=== PATIENT | male | born 1940 | race Caucasian/White ===

== ENCOUNTER 2017-07-25 07:30 | Inpatient (IN) ==
[2017-07-22 15:52] LABS: Appearance,Urine CLEAR; Bacteria,Urine 0 /hpf (0); Bilirubin,Urine NEG (NEG); Calcium Oxalate Crystals,Urine MANY /hpf (0); Color,Urine YELLOW; Glucose,Urine (UA) NEGATIVE (NEG); Leukocyte Esterase,Urine 75 /uL (NEG); Mucus,Urine MOD /hpf (0); Protein,Urine 30 mg/dL (NEG); Specific Gravity,Urine 1.026 (1.000-1.035); Urine Blood NEG mg/dL (<0.03); Urine RBC 2 /hpf (0-1); Urine Squamous Epithelial Cell < 1 /hpf (0-4); Urine WBC 4 /hpf (0-4)
[2017-07-22 16:22] LABS: Blood Urea Nitrogen 13 mg/dl (8-23)
[2017-07-22 16:54] LABS: Basophils # (Auto) 0 K/mcL (0.0-0.3); Basophils % (Auto) 0.4 % (0.0-2.0); Eosinophils # (Auto) 0.1 K/mcL (0.0-0.7); Eosinophils % (Auto) 1.9 % (0.0-7.0); Granulocytes % (Auto) 53.3 % (38.0-78.0); Lymphocytes # (Auto) 2.3 K/mcL (1.5-4.8); Lymphocytes % (Auto) 36.1 % (15.5-49.0); Mean Cell Volume 91.7 fL (80.0-100.0); Mean Corpuscular HGB Conc 33.3 g/dL (31.0-36.0); Mean Corpuscular Hemoglobin 30.6 pg (26.0-34.0); Monocytes # (Auto) 0.5 K/mcL (0.1-0.9); Monocytes % (Auto) 8.3 % (1.0-12.0); Platelet Count 309 K/mcL (140-440); RBC 4.88 M/mcL (4.50-5.90); Red Cell Distribution Width 14.8 % (11.5-14.5)
[~2017-07-25 07:30] MED LIST: ACETAMINOPHEN 500 MG TABLET PO SCH; CELECOXIB 200 MG CAPSULE PO SCH; PREGABALIN 75 MG CAPSULE PO SCH; ceFAZolin 1 GM VIAL IV SCH; oxyCODONE 10 MG TAB.ER.12H PO SCH
[2017-07-25] MEDS ORDERED: KETOROLAC 30 MG, ROPIVACAINE HCL/PF 49.5 ML, EPINEPHrine 0.5 MG, 0.9 % SODIUM CHLORIDE ... IV SCH (12:43)
[2017-07-25] MEDS ORDERED: PHENYLEPHRINE 10 MG/ML VIAL ONE (13:05)
[2017-07-25] MEDS ORDERED: GLYCOPYRROLATE 0.2 MG/ML VIAL IV ONE (13:05)
[2017-07-25] MEDS ORDERED: MIDAZOLAM 2 MG/2 ML VIAL ONE (13:05)
[2017-07-25] MEDS ORDERED: KETAMINE 10 MG/ML ML ONE (13:05)
[2017-07-25] MEDS ORDERED: PROPOFOL 200 MG/20 ML VIAL IV ONE (13:05)
[2017-07-25] MEDS ORDERED: LIDOCAINE HCL/PF 100 MG/5 ML SYRINGE IV ONE (13:05)
[2017-07-25] MEDS ORDERED: ONDANSETRON 4 MG/2 ML VIAL ONE (13:05)
[2017-07-25] MEDS ORDERED: GENTAMICIN SULFATE 800 MG/20 ML VIAL IR ONE (13:50)
[2017-07-25] MEDS ORDERED: fentaNYL 100 MCG/2 ML VIAL IV PRN (14:24)
[2017-07-25] MEDS ORDERED: PROMETHAZINE 25 MG/ML VIAL IV PRN (14:24)
[2017-07-25] MEDS ORDERED: MEPERIDINE 25 MG/ML SYRINGE IV PRN (14:24)
[2017-07-25] MEDS ORDERED: IPRATROPIUM/ALBUTEROL 3 ML AMPUL.NEB NEB PRN (14:24)
[2017-07-25] MEDS ORDERED: METHOCARBAMOL 1,000 MG/10 ML VIAL IV PRN (14:24)
[2017-07-25] MEDS ORDERED: METOPROLOL TARTRATE 5 MG/5 ML VIAL IV PRN (14:24)
[2017-07-25] MEDS ORDERED: LACTATED RINGERS 1,000 ML IV SCH (14:30)
--- NOTE | 2017-07-25 14:34 | Brief Operative Note ---
Date of procedure: 07/25/17 Pre-op diagnosis: left hip djd severe Post-op diagnosis: same Procedure: left jimbo Grafts/Implants: Yes Anesthesia: МАРИЯA Surgeon: Joaquín Goss Recycling Manager: Parveen Burnette Estimated blood loss (cc): 100 Specimens Removed/Pathology: none sent Condition: stable Disposition: PACU
[2017-07-25] MEDS ORDERED: ACETAMINOPHEN 325 MG TABLET PO PRN (14:35)
[2017-07-25] MEDS ORDERED: BISACODYL 10 MG SUPP.RECT PR PRN (14:35)
[2017-07-25] MEDS ORDERED: MAGNESIUM HYDROXIDE 30 ML ORAL.SUSP PO PRN (14:35)
[2017-07-25] MEDS ORDERED: POLYETHYLENE GLYCOL 3350 17 GM PACKET PO PRN (14:35)
[2017-07-25] MEDS ORDERED: KETOROLAC 15 MG/ML VIAL IV PRN (14:35)
[2017-07-25] MEDS ORDERED: ONDANSETRON 4 MG/2 ML VIAL IV PRN (14:35)
[2017-07-25] MEDS ORDERED: FLEETS ADULT ENEMA PR PRN (14:35)
[2017-07-25] MEDS ORDERED: HYDROmorphone 2 MG/ML VIAL IV PRN (14:35)
[2017-07-25] MEDS ORDERED: BENZOCAINE/MENTHOL 1 LOZENGE PO PRN (14:35)
[2017-07-25] MEDS ORDERED: TEMAZEPAM 15 MG CAPSULE PO PRN (14:35)
[2017-07-25] MEDS ORDERED: TRANEXAMIC ACID 1,000 MG/10 ML VIAL IV ONE (14:35)
[2017-07-25] MEDS ORDERED: ALBUTEROL SULFATE 1 PUFF INHALER INH PRN (14:38)
[2017-07-25] MEDS: 0.45 % SODIUM CHLORIDE 1,000 ML IV SCH (15:58)
--- NOTE | 2017-07-25 16:03 | XRay Report ---
CLINICAL INFORMATION: Reason for Exam:Post-Op Total Hip COMPARISON: None. FINDINGS: Total hip prostheses is anatomically aligned. No osseous abnormality. Soft tissues are normal IMPRESSION: Negative Interpreted and Authenticated by: Seamus Christiansen 07/25/17
[2017-07-25] MEDS ORDERED: SENNOSIDES 1 TABLET PO SCH (21:00)
[2017-07-25] MEDS: DOCUSATE SODIUM 100 MG CAPSULE PO SCH (21:42)
[2017-07-25] MEDS: ceFAZolin 1 GM VIAL IV SCH (21:43)
[2017-07-25] MEDS: ASPIRIN 325 MG ENTERIC COATED TABLET PO SCH (21:43)
[2017-07-25] MEDS: 0.9 % SODIUM CHLORIDE 10 ML SYRINGE IV SCH (21:47)
[2017-07-25] MEDS: HYDROcodone/APAP 10/325MG TABLET PO PRN (22:10)
[2017-07-26] MEDS: 0.45 % SODIUM CHLORIDE 1,000 ML IV SCH (02:12)
[2017-07-26] MEDS: HYDROcodone/APAP 10/325MG TABLET PO PRN ×2 (03:02→08:24)
[2017-07-26] MEDS: ceFAZolin 1 GM VIAL IV SCH (05:29)
[2017-07-26] MEDS: 0.9 % SODIUM CHLORIDE 10 ML SYRINGE IV SCH (05:29)
[2017-07-26] MEDS: ASPIRIN 325 MG ENTERIC COATED TABLET PO SCH (08:24)
--- NOTE | 2017-07-26 08:24 | Orthopedic Progress Note ---
Subjective Patient information: Note initiated : 07/26/17 at 8:23 am Service Date, if different from initiated Date: [] Patient: Luis Murrieta 76 y/o M admitted on 07/25/17 for Left Total Hip Arthroplasty. Chief Complaint: Pt is stable this morning on post operative day 1 without any significant concerns or complaints. Patients vital signs have remained stable. Patients dressing is dry and is grossly instact from a neurovascular and motor standpoint. Patients 10 point ROS is otherwise negative. ] Objective Vital signs: Vital Signs Temp Pulse Pulse Resp BP BP Pulse Ox 07/26/17 07:13 98.3 F 18 152/64 95 07/26/17 04:00 98.3 F 60 18 117/64 95 07/26/17 00:22 98.5 F 64 14 115/58 94 07/26/17 00:00 94 07/25/17 22:06 62 14 93 07/25/17 20:32 97.5 F 73 14 130/72 94 07/25/17 20:00 94 07/25/17 18:00 95 07/25/17 16:54 146/88 93 07/25/17 16:27 168/87 96 07/25/17 16:13 153/85 95 07/25/17 16:00 99 07/25/17 15:57 179/83 99 07/25/17 15:42 153/92 99 07/25/17 15:27 158/91 98 07/25/17 15:11 98.2 F 85 15 125/58 99 07/25/17 14:56 97.4 F 56 L 16 133/82 98 07/25/17 14:51 61 133/82 07/25/17 14:46 97.3 F 65 10 L 126/70 97 07/25/17 14:41 97.3 F 72 10 L 151/73 97 07/25/17 10:25 97.4 F 59 L 20 151/91 97 07/25/17 09:42 98.4 F 18 160/89 97 Intake and Output 07/25/17 07/26/17 07/26/17 21:59 05:59 13:59 Intake Total 1590 / 1590 2400 / 2400 Output Total 800 / 800 Balance 1590 / 1590 1600 / 1600 Intake: IV 1000 / 1000 Sodium Chloride 0.45% 1,000 ml 1000 / 1000 @ 100 mls/hr IV .Q10H BHAVANA Rx#: [id number] Oral 590 / 590 1400 / 1400 IV - Manual Only 1000 / 1000 Output: Void Amount 800 / 800 Other: Meal Dinner Percent of Meal Consumed 100% Feeding Ability Independent Weight 220 lb Intake & Output: Intake & Output 07/25/17 07/26/17 07/26/17 21:59 05:59 13:59 Intake Total 1590 / 1590 2400 / 2400 Output Total 800 / 800 Balance 1590 / 1590 1600 / 1600 Weight 220 lb Intake: IV 1000 / 1000 Sodium Chloride 0.45% 1,000 ml 1000 / 1000 @ 100 mls/hr IV .Q10H BHAVANA Rx#: [id number] Oral 590 / 590 1400 / 1400 IV - Manual Only 1000 / 1000 Output: Void Amount 800 / 800 Other: Meal Dinner Percent of Meal Consumed 100% Feeding Ability Independent Incision: Yes healing Incision clean and dry: Yes Dressing: Yes clean Weight bearing status: full Neurological exam IM: Yes motor sensory intact, Yes neurovascular intact Extremities exam IM: Yes normal inspection, Yes Foot pink and warm, Yes neurovascular intact - Labs CBC & BMP: 07/26/17 05:28 07/22/17 13:51 Labs: Orthopedic Labs 07/22/17 13:52 APTT 27 07/26/17 07/22/17 05:28 13:52 Hgb 14.9 Hct 36.2 L 44.7 Assessment and Plan (1) Hx of total hip arthroplasty The patient has been educated regarding dressing care, Physical Therapy recommendations, home exercises, restrictions, and follow up appointments. The patient has had all necessary DME prescribed. The patient has remained relatively stable during their hospital course. I consulted with Dr Goss regarding her O2 concerns as well as if he wants a Hospitalist Consult for her. Leave Dermabond patch intact until followup Status: Acute
--- NOTE | 2017-07-26 08:26 | Discharge Summary ---
Ortho Discharge - POLI - Patient Instructions Diet: Regular Diet Activity: activity as tolerated, weight bearing as tolerated Total Hip Protocol: Follow activity instructions as provided by Physical Therapy. Dressing Care: May shower in 2 days - Problem Maintenance (1) Hx of total hip arthroplasty Status: Acute - Follow Up Plan Disposition: Home, Self-Care Prognosis: Good Rehab Potential: Good I certify that the patient requires SNF services: No Overall status at discharge: patient is progressing back to baseline - Orders For Discharge Prescriptions: Aspirin [Ecotrin] 325 mg PO BID #60 tab.ec Docusate Sodium [Colace] 100 mg PO BID #60 cap HYDROcodone/APAP 10/325MG [[place] 10-325Mg] 1 - 2 tab PO Q4HP PRN #75 tab PRN Reason: Pain Level 3-6
[2017-07-26] MEDS ORDERED: OMEPRAZOLE 20 MG CAPSULE PO SCH (09:00)
[2017-07-26] MEDS ORDERED: FLUoxetine HCL 20 MG CAPSULE PO SCH (09:00)
[2017-07-26] MEDS ORDERED: IBUPROFEN 800 MG TABLET PO SCH (09:00)
[2017-07-26] MEDS: DOCUSATE SODIUM 100 MG CAPSULE PO SCH (09:04)
--- NOTE | 2017-07-28 07:12 | Operative Note ---
DATE OF OPERATION: 07/25/2017 PREOPERATIVE DIAGNOSIS: Left hip degenerative arthritis. POSTOPERATIVE DIAGNOSIS: Left hip degenerative arthritis. PROCEDURE: Left total hip arthroplasty using cementless components from [employer]. SURGEON: Joaquín Goss MD RN REGISTRY: Parveen Burnette PA-C ANESTHESIA: General LMA anesthesia. COMPLICATIONS: None. ESTIMATED BLOOD LOSS: About 100 to 150 mL DESCRIPTION OF PROCEDURE: The patient was brought to the operating room and put to sleep with general LMA anesthesia. Once asleep, the patient had the left hip sterilely prepped and draped in the usual sterile fashion in a right lateral position. The Dmitri positioners were used to stabilize the patient in this position and then we placed Ioban over the skin. Once this was done, a superior posterior approach was performed through a 3 inch incision. We identified the superior posterior capsule which was released. We then dislocated the hip and made a femoral neck cut at 35 mm. Once this was done, we then subluxed the hip anteriorly. I reamed up for the size 58 cup with a 57 reamer placed bone graft in one of the large cysts, reverse reamed and then placed the 58 mm cup in 20 degrees of anteversion and 40 degrees of inclination. Once this was done, we then placed the liner, 36 mm liner with a yan inferiorly positioned. Once this was done, we then prepared the femur, broached up to a size 6 and took an x-ray. This confirmed the leg length to be slightly longer. We then broached up to a size 7 trying to seat the stem deeper which we did. This seemed to be fairly equal on the next x-ray, slightly longer. We then impacted the real stem into the bone 2 more mm and placed a 2.5 plus mm neck. This made the hip perfectly stable once more, up to 90 degrees of rotation. We irrigated thoroughly and repaired the capsule with #1 Ethibond, closed the fascial layer with #1 Stratafix and then closed the fascial layer with Stratafix, 2-0 Vicryl and adhesive closure. Sterile bandage applied. The patient tolerated this well without complication. RBH:lyndsay Job ID: [id number] Doc ID: [id number] Joaquín Goss MD
[2017-08-15] MEDS ORDERED: TESTOSTERONE CYPIONATE 200 MG/ML IM SCH (09:00)
== END 2017-07-26 11:43 | disposition home or self-care (01) | DRG 470 ==
LOC: MERGE 09:20 → MEDSUR 09:20
PROVIDERS: ADMIT Orthopaedic Surgery; ATTEND Orthopaedic Surgery